=== PATIENT | female | born 2000 | race Caucasian/White ===

== ENCOUNTER 2021-09-22 16:15 | Emergency (ER) | payer OTHER ==
[~2021-09-22] VITALS: Ht 157.5 cm; Wt 86.4 kg
[2021-09-22 16:24] VITALS: BP 130/76; PULSE 97; TEMP 98
== END 2021-09-22 20:00 | disposition left against medical advice (07) ==
LOC: COL.ER 16:15
DX: R10.9 Unspecified abdominal pain (principal); Z97.5 Presence of (intrauterine) contraceptive device

== ENCOUNTER 2021-12-22 22:41 | Emergency (ER) | payer OTHER ==
[~2021-12-22] VITALS: Ht 157.5 cm; Wt 88.6 kg
[2021-12-22 22:47] VITALS: TEMP 98.3
[2021-12-22 23:09] VITALS: BP 140/95; PULSE 78
== END 2021-12-22 23:09 | disposition home or self-care (01) ==
LOC: COL.ER 22:41
DX: S61.412A Laceration without foreign body of left hand, initial encounter (principal); F17.290 Nicotine dependence, other tobacco product, uncomplicated; W26.0XXA Contact with knife, initial encounter

== ENCOUNTER → 2021-12-29 | Outpatient (CLI) | payer OTHER ==
[2021-12-29 15:44] VITALS: BP 105/63; PULSE 71; TEMP 97.7
== END ==
LOC: COL.ER 15:22
DX: S61.214D Laceration without foreign body of right ring finger without damage to nail, subsequent encounter (principal); X58.XXXD Exposure to other specified factors, subsequent encounter